=== PATIENT | female | born 1985 | race Caucasian/White ===

== ENCOUNTER → 2017-12-17 | Outpatient (CLI) | payer OTHER, SELFPAY ==
[~2017-12-17] MED LIST: Augmentin 875-1 EACH PO; BCP; CEPH500 PO; CETI5 PO; ESCI5; IBUP800; METF500 PO; Norco 10-325 T1 EACH PO; PRENATAL VITAM1 EAC1 PO; PROBIOTIC1 EAC3 PO; Percocet 5-3251 EACH PO; RANI150 PO; [UNRECOGNIZED DRUG - OTHER]
== END | disposition home or self-care (01) ==
LOC: LAB 16:51
DX: Z36.85 Encounter for antenatal screening for Streptococcus B (principal)
CPT/HCPCS: 87081; 87653

== ENCOUNTER 2018-01-06 19:55 | Inpatient (IN) | payer OTHER, SELFPAY ==
[~2018-01-06] VITALS: Ht 177.8 cm; Wt 105.0 kg
[~2018-01-06 19:55] MED LIST changes: -CETI5 PO; -IBUP800; -METF500 PO; -PRENATAL VITAM1 EAC1 PO; -PROBIOTIC1 EAC3 PO; -Percocet 5-3251 EACH PO; -RANI150 PO
[2018-01-06 20:39] LABS: BASOPHILS ABSOLUTE AUTO 0.02 K/mm3 (0.00-0.23); BASOPHILS PERCENT AUTO 0 % (0-2); EOSINOPHILS ABSOLUTE AUTO 0.15 K/mm3 (0.00-0.68); EOSINOPHILS PERCENT AUTO 2 % (0-6); Hematocrit 36.3 % (33.0-51.0); Hemoglobin 12.2 g/dL (11.5-16.0); IMMATURE GRAN ABSOLUTE AUTO 0.03 K/mm3 (0.00-0.10); IMMATURE GRAN PERCENT AUTO 0 % (0-1); LYMPHOCYTES ABSOLUTE AUTO 2.13 K/mm3 (0.84-5.20); LYMPHOCYTES PERCENT AUTO 22 % (21-46); MONOCYTES ABSOLUTE AUTO 0.67 K/mm3 (0.16-1.47); MONOCYTES PERCENT AUTO 7 % (4-13); Mean Corpuscular HGB 27.1 pg (26.0-34.0); Mean Corpuscular HGB Conc 33.6 g/dL (31.5-36.5); Mean Corpuscular Volume 81 fL (80-100); Mean Platelet Volume 12.1 fL (9.1-12.4); NEUTROPHILS ABSOLUTE AUTO 6.59 K/mm3 (1.96-9.15); NEUTROPHILS PERCENT AUTO 69 % (41-73); Platelet Count 189 K/mm3 (150-400); RDW Coefficient Variation 13.2 % (11.7-14.2); RDW Standard Deviation 38.7 fL (35.1-46.3); White Blood Cell Count 9.59 K/mm3 (4.00-11.30)
[2018-01-06] MEDS ORDERED: METF500 PO (20:52)
[2018-01-06] MEDS ORDERED: CETI5 PO (20:53)
[2018-01-06] MEDS ORDERED: RANI150 PO (20:53)
[2018-01-06] MEDS ORDERED: PRENATAL VITAM1 EAC1 PO (20:54)
[2018-01-06] MEDS ORDERED: PROBIOTIC1 EAC3 PO (20:54)
[2018-01-08 05:48] LABS: Hematocrit 32.8 % (33.0-51.0); Hemoglobin 10.9 g/dL (11.5-16.0)
[2018-01-09] MEDS ORDERED: Percocet 5-3251 EACH PO (12:38)
[2018-01-09] MEDS ORDERED: IBUP800 (12:38)
== END 2018-01-09 15:20 | disposition home or self-care (01) | DRG 775 ==
LOC: BC 19:55
PROVIDERS: Obstetrics & Gynecology
PROC: 10E0XZZ Delivery of Products of Conception, External Approach (ICD-10-PCS; principal; 2018-01-07)
PROC: 0KQM0ZZ Repair Perineum Muscle, Open Approach (ICD-10-PCS; 2018-01-07)
PROC: 3E0P7VZ Introduction of Hormone into Female Reproductive, Via Natural or Artificial Opening (ICD-10-PCS; 2018-01-07)
DX: O24.425 Gestational diabetes mellitus in childbirth, controlled by oral hypoglycemic drugs (principal); O70.1 Second degree perineal laceration during delivery; Z3A.39 39 weeks gestation of pregnancy; Z37.0 Single live birth; Z79.84 Long term (current) use of oral hypoglycemic drugs; Z79.899 Other long term (current) drug therapy
CPT/HCPCS: 36415; 51702; 82947; 85014; 85018; 85025; J1885; J2590; J3010; J7050; J7120

== ENCOUNTER → 2019-02-06 | Outpatient (CLI) | payer OTHER ==
[~2019-02-06] MED LIST changes: +CETI5 PO; +IBUP800; +METF500 PO; +PRENATAL VITAM1 EAC1 PO; +PROBIOTIC1 EAC3 PO; +Percocet 5-3251 EACH PO; +RANI150 PO
[2019-02-10 14:08] LABS: HPV 16 Negative (Negative); HPV 18 Negative (Negative); HPV OTHER HR TYPES Negative (Negative)
== END | disposition home or self-care (01) ==
LOC: LAB SHORT 12:04 → LAB 12:04
PROVIDERS: Obstetrics & Gynecology
DX: Z01.419 Encounter for gynecological examination (general) (routine) without abnormal findings (principal)
CPT/HCPCS: 87624; G0123

== ENCOUNTER → 2019-03-13 | Outpatient (CLI) | payer OTHER | END | disposition home or self-care (01) | LOC: LAB 12:59 → LAB SHORT 12:59 | DX: Z32.01 Encounter for pregnancy test, result positive (principal) | CPT/HCPCS: 84702 ==

== ENCOUNTER → 2019-10-14 | Outpatient (CLI) | payer OTHER ==
[~2019-10-14] MED LIST changes: +Humulin N100 UNIT/1 SC; +IBUP800 PO; +Zantac150 MG PO
== END | disposition home or self-care (01) ==
LOC: LAB SHORT 11:00 → LAB 11:00
DX: Z34.93 Encounter for supervision of normal pregnancy, unspecified, third trimester (principal)
CPT/HCPCS: 87081; 87653

== ENCOUNTER 2019-11-03 06:02 | Inpatient (IN) | payer OTHER ==
[~2019-11-03] VITALS: Ht 177.8 cm; Wt 98.6 kg
[~2019-11-03 06:02] MED LIST changes: -Humulin N100 UNIT/1 SC; -IBUP800 PO; -Zantac150 MG PO
[2019-11-03] MEDS ORDERED: CETI5 PO (06:27)
[2019-11-03] MEDS ORDERED: Zantac150 MG PO (06:28)
[2019-11-03] MEDS ORDERED: METF500 PO ×2 (06:29)
[2019-11-03] MEDS ORDERED: Humulin N100 UNIT/1 SC (06:30)
[2019-11-03 07:25] LABS: BASOPHILS ABSOLUTE AUTO 0.02 K/mm3 (0.00-0.23); BASOPHILS PERCENT AUTO 0 % (0-2); EOSINOPHILS PERCENT AUTO 2 % (0-6); Hematocrit 37.8 % (33.0-51.0); Hemoglobin 12.5 g/dL (11.5-16.0); IMMATURE GRAN ABSOLUTE AUTO 0.02 K/mm3 (0.00-0.10); IMMATURE GRAN PERCENT AUTO 0 % (0-1); LYMPHOCYTES ABSOLUTE AUTO 1.99 K/mm3 (0.84-5.20); LYMPHOCYTES PERCENT AUTO 29 % (21-46); MONOCYTES PERCENT AUTO 9 % (4-13); Mean Corpuscular HGB 27.1 pg (26.0-34.0); Mean Corpuscular HGB Conc 33.1 g/dL (31.5-36.5); Mean Corpuscular Volume 82 fL (80-100); Mean Platelet Volume 12.8 fL (9.1-12.4); NEUTROPHILS ABSOLUTE AUTO 4.08 K/mm3 (1.96-9.15); NEUTROPHILS PERCENT AUTO 60 % (41-73); Platelet Count 158 K/mm3 (150-400); RDW Coefficient Variation 13.4 % (11.7-14.2); RDW Standard Deviation 39.7 fL (35.1-46.3); Red Blood Cell Count 4.62 M/mm3 (3.80-5.20); White Blood Cell Count 6.81 K/mm3 (4.00-11.30)
--- NOTE | 2019-11-03 18:12 | NUR ---
AT 1745 MOTHER CALLED ME INTO ROOM AND SAID ITS TIME FOR A BLOOD SUGAR BUT SHE JUST ALL OF A SUDDEN LOOKED A LITTLE BLUE. I UNWRAPPED THE BLANKETS AND HER ENTIRE BODY,LIMBS AND FACE WERE BLUE. STIMULATED HER TO CRY AND SHE SLOWLY STARTED TO GET PINK AGAIN. NO RESP DISTRESS NOTED. TAKEN TO NURSERY AND DR UMANA CALLED.
[2019-11-04 05:20] LABS: Hematocrit 35.5 % (33.0-51.0); Hemoglobin 11.5 g/dL (11.5-16.0); Mean Corpuscular HGB 27.3 pg (26.0-34.0); Mean Corpuscular HGB Conc 32.4 g/dL (31.5-36.5); Mean Corpuscular Volume 84 fL (80-100); Mean Platelet Volume 12.4 fL (9.1-12.4); Platelet Count 148 K/mm3 (150-400); RDW Coefficient Variation 13.3 % (11.7-14.2); RDW Standard Deviation 41.2 fL (35.1-46.3); Red Blood Cell Count 4.22 M/mm3 (3.80-5.20); White Blood Cell Count 8.38 K/mm3 (4.00-11.30)
[2019-11-04] MEDS ORDERED: IBUP800 PO (07:24)
--- NOTE | 2019-11-04 08:58 | NUR ---
PT ALREADY HAS A PORTAL ACCOUNT
--- NOTE | 2019-11-04 13:52 | NUR ---
DISCHARGE MOTHER AND BABY DISCHARGED HOME STABLE. VERBALIZES UNDERSTANDING OF DC INSTRUCTIONS AND FOLLOW UP APPOINTMENTS. NO QUESTIONS OR CONCERNS. DC HOME STABLE.
== END 2019-11-04 13:50 | disposition home or self-care (01) | DRG 807 ==
LOC: OBS 06:02 → BC 06:02 → OBS 06:11 → BC 06:13
PROVIDERS: ADMIT Obstetrics & Gynecology
PROC: 10E0XZZ Delivery of Products of Conception, External Approach (ICD-10-PCS; principal; 2019-11-03)
PROC: 0HQ9XZZ Repair Perineum Skin, External Approach (ICD-10-PCS; 2019-11-03)
PROC: 3E033VJ Introduction of Other Hormone into Peripheral Vein, Percutaneous Approach (ICD-10-PCS; 2019-11-03)
PROC: 10907ZC Drainage of Amniotic Fluid, Therapeutic from Products of Conception, Via Natural or Artificial Opening (ICD-10-PCS; 2019-11-03)
DX: O24.424 Gestational diabetes mellitus in childbirth, insulin controlled (principal); Z37.0 Single live birth; O70.0 First degree perineal laceration during delivery; Z3A.38 38 weeks gestation of pregnancy; O35.8XX0 Maternal care for other (suspected) fetal abnormality and damage, not applicable or unspecified
CPT/HCPCS: 36415; 82947; 85025; 85027; 86850; 86900; 86901; A9270; J1885; J2405; J7120

== ENCOUNTER → 2021-12-19 | Outpatient (CLI) | payer OTHER ==
[~2021-12-19] MED LIST changes: +Humulin N100 UNIT/1 SC; +IBUP800 PO; +Zantac150 MG PO
[2021-12-22 10:10] LABS: HPV 16 Negative (Negative); HPV 18 Negative (Negative); HPV OTHER HR TYPES Negative (Negative)
== END | disposition home or self-care (01) ==
LOC: LAB SHORT 13:15
PROVIDERS: Nurse Practitioner
DX: Z12.4 Encounter for screening for malignant neoplasm of cervix (principal)
CPT/HCPCS: 87624; G0123

== ENCOUNTER 2025-06-26 10:41 | Day surgery (SDC) | payer BC ==
[~2025-06-26] VITALS: Ht 177.8 cm; Wt 93.4 kg
[~2025-06-26 10:41] MED LIST changes: +AMOCLA875 PO
[2025-06-26] MEDS ORDERED: CeFAZolin Sodium 2,000 MG VIAL ONE (11:18)
[2025-06-26] MEDS ORDERED: ZYRTEC10 M2 PO (11:44)
[2025-06-26] MEDS ORDERED: LOSA50 PO (11:45)
[2025-06-26] MEDS ORDERED: FLONASE ALLERG9.9 M2 NS (11:46)
[2025-06-26] MEDS ORDERED: Midazolam HCl 1MG / ML 2ML Vial ONE (12:41)
[2025-06-26] MEDS ORDERED: FentaNYL Citrate 50 MCG/ML 2 ML Injection ONE (12:41)
[2025-06-26] MEDS ORDERED: Ropivacaine 0.5% HCL/PF 5 MG/ML 30ML Vial ONE (12:52)
--- NOTE | 2025-06-26 13:11 | NUR ---
06/26/25 1311 Tiera Hicks TIME OUT PERFORMED AT BEDSIDE WITH DR VALDES AT 1248. BLOCK STARTED AT 1250 BLOCK ENDED AT 1304 SPO2 AND HR MONITORED THROUGHOUT PROCEDURE. PT TOLERATED WELL.
[2025-06-26] MEDS ORDERED: Ketorolac Tromethamine 30mg Vial ONE (13:20)
[2025-06-26] MEDS ORDERED: Labetalol HCL 5 MG/ML 4ML Injection (Single Dose) ONE (15:06)
--- NOTE | 2025-06-26 15:12 | NUR ---
06/26/25 1512 Mirella Gomez REPORT RECEIVED FROM YVONNE AND RN. PT DROWSY, AROUSABLE TO VERBAL STIMULI. FOLLOWS COMMANDS AND ANSWERS QUESTIONS. IV PATENT. O2 96% ON RA. VSS. MDA AWARE OF BP. ORDERS RECEIVED. PT DENIES PAIN OR NAUSEA AT THIS TIME. DRESSING CLEAN AND INTACT. RIGHT FOOT ELEVATED ON PILLOW UPON ARRIVAL TO PACU. CAP REFILL <3 SECONDS IN RIGHT TOES
--- NOTE | 2025-06-26 15:42 | NUR ---
06/26/25 1542 Mirella Gomez RIGHT LEG ELEVATED AND ICE PACK APPLIED. PT DENIES PAIN OR NAUSEA AT THIS TIME. MOTHER AT BEDSIDE. 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
[2025-06-26 16:20] VITALS: BP 135/88
== END 2025-06-26 16:27 | disposition home or self-care (01) ==
LOC: ORSCSDS 10:41
PROVIDERS: Podiatrist Foot & Ankle Surgery
PROC: 0SBF4ZZ Excision of Right Ankle Joint, Percutaneous Endoscopic Approach (ICD-10-PCS; principal; 2025-06-26 12:45)
PROC: 0SQF0ZZ Repair Right Ankle Joint, Open Approach (ICD-10-PCS; principal; 2025-06-26 12:45)
PROC: 0LQS0ZZ Repair Right Ankle Tendon, Open Approach (ICD-10-PCS; principal; 2025-06-26 12:45)
PROC: 0MQQ0ZZ Repair Right Ankle Bursa and Ligament, Open Approach (ICD-10-PCS; principal; 2025-06-26 12:45)
DX: M25.371 Other instability, right ankle (principal); M24.871 Other specific joint derangements of right ankle, not elsewhere classified; M76.821 Posterior tibial tendinitis, right leg; I10 Essential (primary) hypertension; Z79.899 Other long term (current) drug therapy
CPT/HCPCS: A6253; C1713; J0165; J0690; J1885; J2250; J2704; J2795; J3010; J7120